=== PATIENT | female | born 1960 | race Caucasian/White ===

== ENCOUNTER 2018-04-04 12:08 | Emergency (ER) | payer OTHER ==
--- NOTE | 2018-04-04 12:43 | EDPHY ---
H & P Stated Complaint: Pt. states mid back that radiates to the ruq &epigastric area Time Seen by Provider: 04/04/18 12:12 HPI/ROS: CHIEF COMPLAINT: Back and epigastric pain History by patient HISTORY OF PRESENT ILLNESS: 57-year-old woman with minimal past medical history presents complaining of severe epigastric pain radiating to her mid back. Patient states that symptoms began Wednesday evening about an hour after eating [place] food left over is a. Was associated with some nausea but no vomiting. She said that she would get a severe sharp pain lasting about 10 sec which would ease up and then recur. She denies any fever or chills. She did have an episode of some dysuria. She denies any hematuria. The next day she ate only small amounts of bland food and seemed to be slightly better although she did have several episodes of watery, nonbloody diarrhea. She also had an episode of loose stools this morning. This morning the symptoms recurred and or severe prompting her to call her primary care physician who referred her to the emergency department because of the degree of her pain. On arrival here the patient states her pain is manageable. Patient states she had a workup for her gallbladder are around 5 years ago for similar symptoms. Symptoms are not associated with any shortness of breath and are nonexertional. She has no risk factors for heart disease other than her age and family history. She does not smoke. She has no hypertension or diabetes. Her father had heart disease but of gallbladder cancer. She also has a family history of colon cancer. She last had a colonoscopy 5 years ago which was positive for polyps. REVIEW OF SYSTEMS: As in HPI, and all other systems reviewed and are negative Source: Patient - Personal History Current Tetanus Diphtheria and Acellular Pertussis (TDAP): Yes Tetanus Vaccine Date: 2013 - Medical/Surgical History Hx Asthma: No Hx Chronic Respiratory Disease: No Hx Diabetes: No Hx Cardiac Disease: No Hx Renal Disease: No Hx Cirrhosis: No Hx Alcoholism: No Hx HIV/AIDS: No Hx Splenectomy or Spleen Trauma: No Other PMH: Med hx-none. Surg-2 lumpectomy,tonsils,cysts-bartholin - Social History Smoking Status: Never smoked - Physical Exam Exam: General Appearance: Alert, nontoxic-appearing. Eyes: Pupils equal and round, extraocular movements intact, no pallor or injection. Mouth: Mucous membranes moist. Pharynx clear Respiratory: Normal, effort, lungs are clear to auscultation. No wheezes, rales or rhonchi. Cardiovascular: Regular rate and rhythm. S1, S2, no murmurs, gallops or rubs appreciated Gastrointestinal: bowel sounds present, Abdomen is soft and very mild suprapubic tenderness, no Borrero sign, no guarding, no masses Back: Mild right CVA tenderness, no bony tenderness Neurological: Awake, alert and oriented x 3, no pronator drift, normal gait, no pronator drift Skin: Warm and dry, no rashes. Musculoskeletal: No deformities or tenderness. Extremities: full range of motion, no edema Psychiatric: Patient has normal affect, there is no agitation. Constitutional: Initial Vital Signs Temperature (C) 36.8 C 04/04/18 12:15 Heart Rate 82 04/04/18 12:15 Respiratory Rate 16 04/04/18 12:15 Blood Pressure 111/72 04/04/18 12:15 O2 Sat (%) 95 04/04/18 12:15 O2 Delivery Mode Room Air Allergies/Adverse Reactions: No Known Allergies Allergy (Verified 04/04/18 12:14) Home Medications: Medication Instructions Recorded Multivitamins 04/04/18 Medical Decision Making - Diagnostics EKG Interpretation: Normal sinus rhythm at a rate of 78 with normal axis, normal intervals and no ST segment abnormalities. Impression: Normal EKG ED Course/Re-evaluation: 57-year-old woman presents with severe back and epigastric pain. Exam is unremarkable. ECG showed nothing acute. Patient declined pain medicine in the emergency department without she did complain you to put complain of intermittent severe pain. Labs were also unremarkable including a lipase. Urinalysis showed no evidence of blood. I performed a bedside screening ultrasound to evaluate for gallstones which showed no evidence of stones or thickened gallbladder wall. I reviewed the patient's old records and she had and HIDA scan 4 years ago which was negative as well as an MRI that showed liver hemangioma. Patient states she was having similar symptoms at that time. On re-evaluation patient stated that her pain recurred and was worse and she was complaining predominantly of upper back pain radiating to her chest. Given the nature of her symptoms I was concerned about possibility of aortic dissection their service CT abdomen chest pelvis was obtained. I will transfer care to Dr. Sheets pending results of CT scan. If there is no evidence of aortic dissection the or other acute cause of the patient's symptoms found on CT scan, I think given her stable vital signs is safe for the patient to go home and follow up as an outpatient with her primary care physician. - Data Points Laboratory Results: Laboratory Results 04/04/18 12:53 Medications Given: Discontinued Medications Sodium Chloride (Ns) 500 mls @ 1,500 mls/hr IV ONCE ONE Stop: 04/04/18 13:58 Last Admin: 04/04/18 14:30 Dose: Not Given Sodium Chloride (Ns) 500 mls @ 0 mls/hr IV ONCE ONE PRN Reason: Wide Open Stop: 04/04/18 13:50 Last Admin: 04/04/18 14:33 Dose: Not Given Sodium Chloride (Ns) 1,000 mls @ 0 mls/hr IV ONCE ONE PRN Reason: Wide Open Stop: 04/04/18 13:52 Last Admin: 04/04/18 13:49 Dose: 500 mls Point of Care Test Results: Chemistry 04/04/18 04/04/18 13:15 13:01 POC Sodium 142 mEq/L mEq/L (135-145) POC Potassium 3.8 mEq/L mEq/L (3.3-5.0) POC Chloride 102.0 mEq/L mEq/L (97-110) POC Total CO2 27 mEq/L mEq/L (22-31) POC BUN 5 mg/dL L mg/dL (7-23) POC Creatinine 0.8 mg/dL mg/dL (0.6-1.0) POC Glucose 92 mg/dL mg/dL (70-100) POC Calcium 9.7 mg/dL mg/dL (8.5-10.4) POC Total Bilirubin 0.9 mg/dL mg/dL (0.1-1.4) POC GGT 9 IU/L IU/L (5-65) POC AST 29 IU/L IU/L (14-46) POC ALT 17 IU/L IU/L (9-52) POC Alk Phosphatase 54 IU/L IU/L (38-126) POC Total Protein 7.0 g/dL g/dL (6.3-8.2) POC Albumin 4.0 g/dL g/dL (3.5-5.0) POC Amylase 37 IU/L IU/L (30-110) Basic Metabolic Panel BMP Collection Date 04/04/18 BMP Collection Time 12:53 Liver Function Tests LFT Collection Date 04/04/18 LFT Collection Time 12:53 Urine Dip Collection Date 04/04/18 Collection Time 13:00 Specific [place] (1.002-1.030) 1.010 PH (5.0-7.5) 7.0 Leukocytes (Negative) Negative Nitrites (Negative) Negative Protein (Negative) Negative Glucose (Negative) Negative Ketones (Negative) Negative Urobilnogen (0.2-1.0 EU) 0.2 Bilirubin (Negative) Negative Blood (Negative) Negative Departure - Departure Disposition: Home, Routine, Self-Care Clinical Impression: Back pain, Epigastric abdominal pain Instructions: Epigastric Pain (ED) Additional Instructions: You were seen by Dr. Rosanne Aleman today. All your labs were normal today. The cause of her symptoms is unclear. Please follow up with her primary care physician as soon as possible. Return for any worsening or new concerns. Referrals: Ashley Rois MD [Primary Care Provider] - As per Instructions
[2018-04-04] MEDS ORDERED: NS 500 ML IV ONE ×2 (13:39→13:49)
[2018-04-04] MEDS ORDERED: NS 1,000 ML IV ONE (13:51)
[2018-04-04 13:52] LABS: PLATELET COUNT 302 10^3/uL (150-400)
[2018-04-04] MEDS ORDERED: IOPAMIDOL (ISOVUE 370) 100 ML BTL IV ONE (14:42)
[2018-04-04 15:58] VITALS: BP 124/70
== END 2018-04-04 15:57 | disposition home or self-care (01) ==
LOC: CED 12:08
DX: R10.13 Epigastric pain (principal); M54.9 Dorsalgia, unspecified
CPT/HCPCS: 71275-PO; 80048-PO; 80076-PO; 82150-PO; Q9967